=== PATIENT | male | born 1995 | race Caucasian/White ===

== ENCOUNTER 2016-08-25 18:18 | Emergency (ER) | payer OTHER ==
[~2016-08-25] VITALS: Ht 170.2 cm; Wt 68.0 kg
[2016-08-25 18:23] VITALS: TEMP 37.2; Ht 170.2 cm; Wt 68.0 kg
--- NOTE | 2016-08-25 18:59 | DIAGNOSTIC IMAGING REPORT ---
HEAD CT NONCONTRAST CT DOSE: 537.48 mGy.cm HISTORY: Trauma Head trauma, headache TECHNIQUE: Multiaxial CT images of the head were performed without the use of intravenous contrast. Comparison: None. Findings: The paranasal sinuses and mastoid air cells are clear. The calvarium and skull base are intact. The ventricles and sulci are within normal limits. There is no mass, hematoma, midline shift, or acute infarct. Impression: No acute intracranial abnormality. Electronically signed by: Brandon Aviles M.D. 08/25/2016 6:57 PM Dictated Date/Time: 08/25/2016 6:56 PM
--- NOTE | 2016-08-25 19:53 | EMERGENCY ROOM VISIT NOTE ---
History First contact with patient: 18:28 Chief Complaint: HEAD INJURY (MINOR) Stated Complaint: HEAD INJURY- [facility] REFERRED History of Present Illness The patient is a 20 year old male who presents to the Emergency Room via private vehicle with complaints of "head injury, [employer] referred". The patient states that he participates in [employer] with [facility] [employer], and while participating in a tournament In [place], Tuesday around 9:51 AM he was struck in the left eye region with a ball. He notes this region became red, and knocked his contact out. He had a little bit of the right eye at the time, but is now decreased. He notes it feels slightly agitated still but is improving. He was to pal that time, and wobbly and felt like she checked out. He states he felt like an eyelash in the eye. He also had minor hits to the head throughout the rest of the pain. He then states Tuesday around 11:30, he was struck by a dodgeball by a player who was able to throw 80 miles per hour. He states that the striking him in the right forehead. He remained conscious, but later that day when he got in the car to leave he sat down and then fell asleep for 3-4 hours, and at one point his teammates noted that he was staring off into space. He does not recall this time. He also notes that his head was hurting somewhat, and then he went to bed. He had headaches this past Tuesday which were minor in nature. He also notes he believes he felt fine yesterday but repeated a conversation with his friend because he did not remember having a conversation. He notes today and lab he felt tender on the right forehead and had a headache rated as an 8-9/10. He's been limiting his physical activity and reviewing electronic screenings. He was [facility] believes he has a concussion, but sent him here for further evaluation and management. He does have a history of concussions, but denies passing out with exertion. He denies any chest pain, shortness of breath, fevers, chills, history of sudden in the family. Review of Systems A complete 6-point Review of Systems was discussed with the patient, with pertinent positives and negatives listed in the History of Present Illness. All remaining Review of Systems questions can be considered negative unless otherwise specified. Past Medical/Surgical History [place] teeth extraction, trauma to left eye Family History Diabetes, high blood pressure, cancer, kidney disease or stones Social History Smoking Status: Never Smoker Social History: Lives alone and with family Current/Historical Medications No Active Prescriptions or Reported Meds Allergies Coded Allergies: Amoxicillin (Verified Allergy, Intermediate, Hives/Rash, 08/25/16) Penicillins (Verified Allergy, Intermediate, Hives/Rash, 08/25/16) Physical Exam Vital Signs Date Time Temp Pulse Resp B/P Pulse Ox O2 Delivery O2 Flow Rate FiO2 08/25/16 20:02 68 18 132/80 99 08/25/16 18:24 16 08/25/16 18:23 37.2 67 16 140/85 98 Room Air Physical Exam VITAL SIGNS - Vital signs and nursing notes were reviewed. Afebrile, BP of 140/ 85, pulse 67 and saturating on room air at 98% GENERAL - 20-year-old male appearing his stated age. Communicates well with provider and answers questions appropriately. SKIN - Unremarkable HEAD - Normocephalic, Atraumatic. No Brown's Sign or Raccoon's Eyes. No depressed skull fractures palpable. EYES - PERRL with EOMI bilaterally. Without subconjunctival hemorrhage. Palpebral conjunctiva pink and moist with no injection. EARS - No deformities of external structures noted on gross examination bilaterally. No hemotympanum present. No tympanic perforation noted. Handle of malleus, umbo, cone of light, pars tensa/flaccid all easily visualized. NOSE - Midline and without cyanosis. No epistaxis or clear watery discharge noted. Septum midline without deviation. No septal hematoma noted. No overlying ecchymosis noted. MOUTH/OROPHARYNX - Without perioral cyanosis. Tongue midline with equal elevation of palate bilaterally. No blood noted in the oropharynx. No tonsillar hypertrophy, erythema, or exudates noted. No dental fractures noted. NECK - No tenderness to palpation over the cervical spinous processes. No cervical paraspinal muscle tenderness noted. LUNGS - Chest wall symmetric without accessory muscle use, intercostals retractions, or central cyanosis. Normal vesicular breath sounds CTA B/L. No wheezes, rales, or rhonchi appreciated. CARDIAC - RRR with S1/S2. No murmur, rubs, or gallops appreciated. EXTREMITIES - No gross deformities noted of the extremities. +5/5 strength noted in UE/LE bilaterally. NEUROLOGIC - Cranial nerves II through XII grossly intact. Sensory intact to light touch throughout. PSYCH - A&Ox3 and cooperates fully with examiner. Pt is very pleasant and interacts well with examiner. Medical Decision & Procedures ER Provider Diagnostic Interpretation: HEAD CT NONCONTRAST CT DOSE: 537.48 mGy.cm HISTORY: Trauma Head trauma, headache TECHNIQUE: Multiaxial CT images of the head were performed without the use of intravenous contrast. Comparison: None. Findings: The paranasal sinuses and mastoid air cells are clear. The calvarium and skull base are intact. The ventricles and sulci are within normal limits. There is no mass, hematoma, midline shift, or acute infarct. Impression: No acute intracranial abnormality. Electronically signed by: Brandon Aviles M.D. 08/25/2016 6:57 PM Dictated Date/Time: 08/25/2016 6:56 PM Medical Decision Patient was seen and evaluated as above. After obtaining a thorough history and physical examination CT scan of the head was obtained without contrast as indicated. He presents with what appears to be concussion symptoms. He denies any chest pain or shortness of breath. He clinically appears well. He is neurologically intact. CT scan results as above. These are negative. These were reviewed with the patient. I do suspect that he can be managed in the outpatient setting with the [facility] concussion clinic, [facility] or return here if worsening. I believe the diagnosis of concussion is appropriate this time. There are no other complaints. He was educated upon worrisome symptoms which to return, had questions prior to discharge and was discharged home in good condition. In the evaluation and treatment of this patient, the following differential diagnoses were considered: Concussion, Contrecoup Injury, Brain Tumor, Depression, Encephalitis, Hypothyroidism, Meningitis, CVA, TIA, Migraine, Cluster Headache, Intracranial Abnormality, Intracranial Hemorrhage, Subdural Hematoma, Subarachnoid Hemorrhage, Hydrocephalus. Impression Primary Impression: Closed head injury Additional Impression: Concussion Departure Information Dispostion Home / Self-Care Condition GOOD Prescriptions No Active Prescriptions or Reported Meds Referrals No Doctor, Assigned (PCP) Patient Instructions My [facility] Additional Instructions You have been treated in the Emergency Department for a Closed Head Injury. CT Scan of your head/brain demonstrated no acute bleeding or other abnormalities. This does not completely rule out the risk for future damage to the brain. For pain control, you can use the following [id number] medicines (if >12 yo): - Regular strength (325mg/tab) Tylenol (acetaminophen) 2 tabs every 4-6 hours as needed. Do not exceed 12 tablets in a 24 hour period. Avoid taking more than 3 grams (3000 mg) of Tylenol per day. This includes any other sources of acetaminophen you may take on a regular basis. - Regular strength (200 mg/tab) Advil (ibuprofen) 1-2 tabs every 4-6 hours as needed. Do not exceed a dose of 3200 mg per day. You should relax in a quiet, dark place for the rest of the day. Avoid any possible triggers including: cigarette smoke, caffeine, nicotine, chocolate, wine, beer, loud noises or music, or bright lights. You should schedule a follow-up appointment for further evaluation and treatment of your Headache ([facility]) please call their office first thing tomorrow morning to schedule follow-up or walk into the clinic. Please follow up with the concussion clinic for further evaluation and treatment of your injury: [facility] [phone] [place] [address] [address] You should NOT return to athletic play until reevaluated by your Wet End Operator. You should fully comply with their standard protocol regarding head injuries. Your Wet End Operator OR Primary Care Provider will have the final say in your return to athletic play. This timeframe should be AT LEAST 1 week AFTER the date of last symptoms experienced! This is ESSENTIAL to allow for adequate brain healing time and for reduced risk of re-injury. Return to the Emergency Department if your current symptoms worsen despite treatment course outlined above, or if you develop any of the following symptoms : intractable pain despite aforementioned treatment course, visual disturbances , loss of vision, unilateral weakness or facial drooping, slurring of speech, loss of coordination, or loss of consciousness. Please return to the emergency department with any new/concerning symptoms. Problem Qualifiers
[2016-08-25 20:02] VITALS: BP 132/80; PULSE 68; O2SAT 99
== END 2016-08-25 20:04 | disposition home or self-care (01) ==
LOC: C.EDB 18:19 → C.EDD 20:04
DX: S09.90XA Unspecified injury of head, initial encounter (principal); S06.0X9A Concussion with loss of consciousness of unspecified duration, initial encounter; W21.00XA Struck by hit or thrown ball, unspecified type, initial encounter; Y93.6A Activity, physical games generally associated with school recess, summer camp and children; Z88.0 Allergy status to penicillin; Z88.1 Allergy status to other antibiotic agents; Z83.3 Family history of diabetes mellitus; Z82.49 Family history of ischemic heart disease and other diseases of the circulatory system; Z84.1 Family history of disorders of kidney and ureter; Z80.9 Family history of malignant neoplasm, unspecified